=== PATIENT | male | born 1950 ===

== ENCOUNTER → 2018-07-28 | Outpatient (REF) | payer OTHER ==
[2018-07-28 10:13] LABS: HEMATOCRIT 40.7 % (39.0-50.0); HEMOGLOBIN 13.9 g/dl (14.0-18.0); IMMATURE GRANULOCYTES 0.2 % (0.0-5.0); MEAN CORPUSCULAR HGB 30.8 pG CALC (26.0-32.0); MEAN CORPUSCULAR HGB CONC 34.2 g/L CALC (32.0-36.0); NEUT# 4.2 thou/uL (1.82-7.42); RED BLOOD COUNT 4.52 mill/uL (4.70-6.10); RED CELL DISTRI WIDTH 11.8 % (11.5-15.5)
[2018-07-28 10:37] LABS: ALBUMIN 4.5 g/dL (3.2-5.0); ALKALINE PHOSPHATASE 70 u/l (38-126); ANION GAP 16 (6-22 (CALC)); BILIRUBIN, TOTAL 0.7 mg/dL (0.0-1.4); BUN 16 mg/dL (8-23); BUN/CREATININE RATIO 13 (12-20 (CALC)); CARBON DIOXIDE 22 mmol/l (22-30); CHLORIDE 104 mmol/l (95-108); CREATININE 1.3 mg/dL (0.7-1.3); GFR 55 ML/MIN (>=60 (CALC)); GFR FOR AFR.AMER. > 60 ML/MIN (>=60 (CALC)); POTASSIUM 3.9 mmol/l (3.5-5.1); SGOT/AST 29 u/l (19-48); SODIUM 138 mmol/l (137-146); TOTAL PROTEIN 7.4 g/dL (6.3-8.2)
[2018-07-28 11:07] LABS: TSH, 3RD GENERATION 1.82 uIU/mL (0.47 - 4.68)
== END | disposition home or self-care (01) | DRG 310 ==
LOC: LABSPEC 10:02
PROVIDERS: ATTEND Nurse Practitioner Adult Health
DX: R00.0 Tachycardia, unspecified (principal); E86.0 Dehydration

== ENCOUNTER 2022-03-25 07:42 | Emergency (ER) | payer OTHER ==
[2022-03-25] VITALS (7 sets, daily range): BP systolic 109–131; BP diastolic 64–112
[~2022-03-25] VITALS: Ht 182.9 cm; Wt 105.9 kg
[2022-03-25 07:59] LABS: HEMATOCRIT 41.7 % (39.0-50.0); HEMOGLOBIN 14.1 g/dl (14.0-18.0); MEAN CELL VOLUME 93.5 fL CALC (80.0-100.0); MEAN CORPUSCULAR HGB 31.6 pG CALC (26.0-32.0); MEAN CORPUSCULAR HGB CONC 33.8 g/dL CAL (32.0-36.0); NEUT# 3.82 thou/uL (1.82-7.42); RED BLOOD COUNT 4.46 mill/uL (4.70-6.10); RED CELL DISTRI WIDTH 11.6 % (11.5-15.5)
[2022-03-25] MEDS ORDERED: LIPITOR20 M1 PO (08:09)
[2022-03-25] MEDS ORDERED: CYMBALTA20 MG PO (08:10)
[2022-03-25] MEDS ORDERED: BENZTROPINE0.5 MG PO (08:13)
[2022-03-25] MEDS ORDERED: ACETAMINOP160 MG/5 M PO (08:17)
[2022-03-25 08:32] LABS: ALBUMIN 4.4 g/dL (3.2-5.0); ALKALINE PHOSPHATASE 66 u/l (38-126); BUN 15 mg/dL (8-23); BUN/CREATININE RATIO 16 (12-20 (CALC)); CHLORIDE 104 mmol/l (95-108); CREATININE 0.9 mg/dL (0.7-1.3); GFR FOR AFR.AMER. > 60 ML/MIN (>=60 (CALC)); GFR OTHER RACES > 60 ML/MIN (>=60 (CALC)); POTASSIUM 3.9 mmol/l (3.5-5.1); SGOT/AST 28 u/l (19-48); SODIUM 138 mmol/l (137-146); TOTAL PROTEIN 7.3 g/dL (6.3-8.2)
[2022-03-25 08:35] LABS: ANION GAP 11 (6-22 (CALC)); BILIRUBIN, TOTAL 1.1 mg/dL (0.0-1.4); CARBON DIOXIDE 27 mmol/l (22-30)
== END 2022-03-25 09:37 | disposition home or self-care (01) | DRG 149 ==
LOC: ED 07:42
PROVIDERS: Emergency Medicine
DX: R42 Dizziness and giddiness (principal); I10 Essential (primary) hypertension